=== PATIENT | male | born 2005 | race Caucasian/White ===

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

== ENCOUNTER 2025-08-30 18:57 | Emergency (ER) | payer SELFPAY ==
[2025-08-30] MEDS: Ketorolac 60 MG/2 ML SDV IM ONE (19:51)
[2025-08-31 00:23] VITALS: BP 123/74; PULSE 77
== END 2025-08-30 21:48 | disposition home or self-care (01) ==
LOC: JD.ED 18:57
DX: S82.891A Other fracture of right lower leg, initial encounter for closed fracture (principal); X50.1XXA Overexertion from prolonged static or awkward postures, initial encounter
CPT/HCPCS: 29515; 73610; 96372; 99283; J1885